=== PATIENT | female | born 1970 | race Caucasian/White ===

== ENCOUNTER → 2025-07-25 14:00 | Outpatient (BNVA) | payer MEDICAID, SELFPAY | PROVIDERS: Visit Provider Family Medicine | DX: E55.9 Vitamin D deficiency, unspecified (principal); G24.01 Drug induced subacute dyskinesia; I10 Essential (primary) hypertension; E78.2 Mixed hyperlipidemia; F31.9 Bipolar disorder, unspecified | CPT/HCPCS: 80053; 80061; 82306; 82607; 83036; 84443; 85025 ==

== ENCOUNTER 2025-09-11 11:01 | Outpatient (CLI) | payer MEDICAID, SELFPAY ==
--- NOTE | 2025-09-11 11:15 | MM_ITS ---
WS: [id number] BILATERAL 3D TOMOSYNTHESIS DIGITAL DIAGNOSTIC MAMMOGRAPHY WITH CAD CLINICAL INFORMATION: N63.0 - Unspecified lump in unspecified breast HISTORY: LEFT breast lump COMPARISON: None. TECHNIQUE: Bilateral CC, MLO, and ML views. FINDINGS: The breasts are composed of heterogeneous fibroglandular density, which can limit the detection of small underlying mass lesions. No suspicious lesions in the area of palpable concern upper outer LEFT breast. Ultrasound described below Biopsy clip RIGHT breast. ULTRASOUND BREAST LEFT TECHNIQUE: Ultrasound left breast focused area of concern. CLINICAL INFORMATION: N63.0 - Unspecified lump in unspecified breast FINDINGS: Ultrasound LEFT breast 2 o'clock position 5 cm from the nipple in the area of concern. No suspicious abnormalities in this area. No cystic or solid lesions. Recommend return to annual screening mammography. MM/MM diag tomosynthesis [id number] IMPRESSION: DENSITY: The breasts are heterogeneously dense, which may obscure small masses. BI-RADS: 2 - Benign FOLLOW UP: 1 Year Follow-up Recommend return to annual screening mammography.
--- NOTE | 2025-09-11 11:45 | US_ITS ---
WS: [id number] BILATERAL 3D TOMOSYNTHESIS DIGITAL DIAGNOSTIC MAMMOGRAPHY WITH CAD CLINICAL INFORMATION: N63.0 - Unspecified lump in unspecified breast HISTORY: LEFT breast lump COMPARISON: None. TECHNIQUE: Bilateral CC, MLO, and ML views. FINDINGS: The breasts are composed of heterogeneous fibroglandular density, which can limit the detection of small underlying mass lesions. No suspicious lesions in the area of palpable concern upper outer LEFT breast. Ultrasound described below Biopsy clip RIGHT breast. ULTRASOUND BREAST LEFT TECHNIQUE: Ultrasound left breast focused area of concern. CLINICAL INFORMATION: N63.0 - Unspecified lump in unspecified breast FINDINGS: Ultrasound LEFT breast 2 o'clock position 5 cm from the nipple in the area of concern. No suspicious abnormalities in this area. No cystic or solid lesions. Recommend return to annual screening mammography. US/US breast LT limited* [id number] IMPRESSION: DENSITY: The breasts are heterogeneously dense, which may obscure small masses. BI-RADS: 2 - Benign FOLLOW UP: 1 Year Follow-up Recommend return to annual screening mammography.
== END 2025-09-11 11:02 | disposition home or self-care (01) ==
LOC: RAD 11:02
PROVIDERS: PCP Family Medicine; Visit Provider Nurse Practitioner Family
DX: N63.21 Unspecified lump in the left breast, upper outer quadrant (principal); R92.332 Mammographic heterogeneous density, left breast; R92.322 Mammographic fibroglandular density, left breast
CPT/HCPCS: 76642; 77062; G0279